=== PATIENT | male | born 1945 | race Caucasian/White ===

== ENCOUNTER → 2016-09-10 | Outpatient (CLI) | payer MEDICARE, BC | LOC: LAB.O 20:39 | PROVIDERS: ATTEND Nurse Practitioner Family | DX: M25.439 Effusion, unspecified wrist (principal) ==

== ENCOUNTER → 2016-12-04 | Outpatient (CLI) | payer MEDICARE ==
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
== END ==
LOC: MRI 07:49
PROVIDERS: ATTEND Family Medicine
DX: M54.12 Radiculopathy, cervical region (principal); M48.02 Spinal stenosis, cervical region

== ENCOUNTER → 2018-09-10 | Day surgery (SDC) | payer MEDICARE ==
--- NOTE | 2018-09-07 14:04 | RAD ---
EXAM DESCRIPTION: Chest,2 Views CLINICAL HISTORY: PREOP COMPARISON: Previous study December 14, 2013 TECHNIQUE: PA/lateral FINDINGS: There is no acute appearing cardiac or pulmonary abnormality. Heart size is normal with normal pulmonary vascularity. No pleural effusion or pneumothorax. Lungs are clear with no consolidating infiltrate. Lateral view shows intact sternum and multilevel spurring in the T-spine. IMPRESSION: No acute process is identified in the chest. Electronically signed by: Russ Leslie MD 09/07/2018 2:01 PM CDT
[~2018-09-10] MED LIST: ACETAMINOPHEN W/COD #3 TAB 1 EA TAB ONE; BUPIVACAINE 0.25% W/EPI 50 ML VIAL INJ ONE; DEXAMETHASONE INJ 10 MG/ML VIAL IV ONE; LACTATED RINGERS 1,000 ML IVS ONE; LACTATED RINGERS 1,000 ML ONE; LIDOCAINE 1% 10 ML VIAL INJ ONE; MIDAZOLAM INJ 2 MG/2 ML VIAL ONE; PHENYLEPHRINE INJ 1ML 10 MG/ML VIAL IV ONE; PROPOFOL 200 MG/20 ML VIAL IV ONE; SODIUM CHL 0.9% 50ML MIN-BAG+ 50 ML IVPB ONE; ceFAZolin SODIUM 1 GM VIAL ONE; ePHEDrine SULF 50 MG/ML IV ONE; fentaNYL CITRATE INJ 50 MCG/ML AMP ONE; raNITIdine HCL INJ 25 MG/ML VIAL IV ONE
--- NOTE | 2018-09-10 13:30 | OP ---
DATE OF PROCEDURE: 09/10/18 PREOPERATIVE DIAGNOSIS: 1. Reducible right inguinal hernia. POSTOPERATIVE DIAGNOSIS: 1. Reducible right inguinal hernia. PROCEDURE: 1. Repair of right inguinal hernia. SURGEON: Ashok Patterson MD. SHIPPING CLERK CRATING: None. ANESTHESIA: General laryngeal mask anesthesia and local infiltration of 0.25% Marcaine with epinephrine. INDICATION: The patient is a 73-year-old male who has had a hernia for quite some time and he has known about it. It became symptomatic recently. The patient was brought to the Surgical Suite today for hernia repair after the risks, benefits and alternatives to the procedure were discussed and accepted and the patient was seen and thought to be an appropriate risk by his family physician, Dr. Mir Reyes. FINDINGS: The patient had a large indirect inguinal hernia with no sliding component. There was also a significant cord lipoma. No other pathology was identified. PROCEDURE: After adequate general laryngeal mask anesthesia was obtained in the supine position, the patient was prepped and draped in the usual sterile manner. At this point, a surgical time-out was taken noting the right side which was previously marked in ambulatory services. At this point, local infiltration of anesthesia was obtained in the right lower quadrant and an oblique incision was fashioned first with a sharp knife, then dissection was carried down through the skin and subcutaneous tissue to the external oblique fascia using electrocautery and blunt dissection. The self-retaining retractor was placed at this level. The external oblique fascia was then opened in the direction of the fibers through the external inguinal ring using first a sharp knife and then Metzenbaum scissors. The external oblique fascia was then dissected free from the cord and from the floor of the canal and the self-retaining retractor was placed at this level. The cord was then dissected free from the floor of the canal. A half inch [place] drain was placed around it for traction. When this was done, the cord was then explored with the indirect hernia sac identified and dissected free down to the level of the internal ring. The cord lipomas were dissected free using electrocautery and clamps and ligatures of 3-0 Vicryl. When this was done, hemostasis was noted to be adequate. At this point, a Surgimesh plug was introduced under the floor of the canal at the internal inguinal ring. It was sutured circumferentially with interrupted 2-0 Vicryl sutures. When this was done, the wound was irrigated with saline. Hemostasis was noted to be adequate. At this point, a Surgimesh patch was sutured around the cord in the usual manner with interrupted 2-0 Vicryl sutures. Again, the wound was irrigated with saline. Hemostasis was noted to be adequate. At this point, the external oblique fascia was then closed with running 3-0 Vicryl suture. The cord and subcutaneous tissue above, below and lateral to the incision were infiltrated with local anesthesia. The Elias's fascia was approximated with interrupted 3- 0 Chromic suture. Skin edges were approximated with skin stapler. Sterile pressure dressing was applied. The testicle was checked for position in the scrotum. The patient was awakened and taken to the Recovery Room in stable condition. Estimated blood loss was less than 50 mL. All sponge, needle and instrument counts were correct. #[id number] [facility]
[2018-09-10 13:57] VITALS: BP 148/84; TEMP 97.6; O2SAT 96
== END ==
LOC: AMB 05:41
PROVIDERS: ATTEND Surgery
DX: K40.90 Unilateral inguinal hernia, without obstruction or gangrene, not specified as recurrent (principal); K21.9 Gastro-esophageal reflux disease without esophagitis; E74.39 Other disorders of intestinal carbohydrate absorption; Z85.46 Personal history of malignant neoplasm of prostate; Z88.8 Allergy status to other drugs, medicaments and biological substances; Z79.899 Other long term (current) drug therapy
CPT/HCPCS: 00830; 36415; 49505; 71046; 80053; 81001; 85025; 93005; J0690; J1100; J2250; J2780; J3010; J3490; J7050; J7120

== ENCOUNTER 2018-12-24 17:57 | Emergency (ER) | payer MEDICARE ==
[2018-12-24] MEDS: IPRATROPIUM/ALBUTEROL 3 ML VIAL NEB ONE (18:12)
[2018-12-24 18:21] VITALS: TEMP 98.6
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
[2018-12-24] MEDS: POTASSIUM CHLORIDE ELIXIR 20 MEQ/15 ML UD PO ONE (18:56)
[2018-12-24] MEDS: predniSONE 20 MG TAB PO ONE (19:11)
[2018-12-24] MEDS: SODIUM CHLORIDE 0.9% 1000ML 1,000 ML IVS ONE (19:11)
[2018-12-24 20:09] VITALS: BP 141/73
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
[2018-12-24 20:34] VITALS: O2SAT 97
== END 2018-12-24 20:30 | disposition home or self-care (01) ==
LOC: ER 17:57
DX: J70.5 Respiratory conditions due to smoke inhalation (principal); R07.1 Chest pain on breathing; R06.02 Shortness of breath; R05 Cough; T67.5XXA Heat exhaustion, unspecified, initial encounter; E87.6 Hypokalemia; J45.909 Unspecified asthma, uncomplicated; K21.9 Gastro-esophageal reflux disease without esophagitis; Z85.46 Personal history of malignant neoplasm of prostate; Z88.5 Allergy status to narcotic agent
CPT/HCPCS: 36415; 71045; 80053; 81001; 82550; 82553; 83605; 83735; 83880; 84484; 85025; 85379; 85610; 85730; 93005; 94640; J7030; J7512; J7620

== ENCOUNTER → 2019-03-14 | Outpatient (CLI) | payer MEDICARE | LOC: GMAF 10:36 | PROVIDERS: ATTEND Nurse Practitioner Family | DX: D51.9 Vitamin B12 deficiency anemia, unspecified (principal); R53.83 Other fatigue; E55.9 Vitamin D deficiency, unspecified ==

== ENCOUNTER → 2019-06-02 | Outpatient (CLI) | payer MEDICARE | LOC: GMAF 15:04 | PROVIDERS: ATTEND Nurse Practitioner Family | DX: D51.9 Vitamin B12 deficiency anemia, unspecified (principal) ==

== ENCOUNTER 2019-12-22 16:51 | Emergency (ER) | payer MEDICARE ==
[2019-12-22] MEDS ORDERED: SODIUM CHLORIDE 0.9% 1000ML 1,000 ML IVS PRN (16:58)
[2019-12-22] MEDS ORDERED: SODIUM CHLORIDE 0.9% (FLUSH) 10 ML SYG IV PRN (16:58)
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
[2019-12-22 19:06] VITALS: BP 151/87; TEMP 96; O2SAT 96
== END 2019-12-22 19:25 | disposition home or self-care (01) ==
LOC: ER 16:51
DX: S46.911A Strain of unspecified muscle, fascia and tendon at shoulder and upper arm level, right arm, initial encounter (principal); S30.1XXA Contusion of abdominal wall, initial encounter; J45.909 Unspecified asthma, uncomplicated; K21.9 Gastro-esophageal reflux disease without esophagitis; Z85.46 Personal history of malignant neoplasm of prostate; Z88.5 Allergy status to narcotic agent; W55.22XA Struck by cow, initial encounter; Y93.89 Activity, other specified; Y92.9 Unspecified place or not applicable
CPT/HCPCS: 36415; 71045; 71260; 73030; 74177; 80053; 82150; 85025; 93005; J7030

== ENCOUNTER → 2020-02-06 | Outpatient (CLI) | payer MEDICARE | LOC: GMAM 10:47 | PROVIDERS: ATTEND Family Medicine | DX: D51.9 Vitamin B12 deficiency anemia, unspecified (principal); E55.9 Vitamin D deficiency, unspecified; Z12.5 Encounter for screening for malignant neoplasm of prostate; I10 Essential (primary) hypertension; E78.2 Mixed hyperlipidemia | CPT/HCPCS: 82306; 82607; G0103 ==

== ENCOUNTER → 2020-03-08 | Outpatient (CLI) | payer MEDICARE | LOC: GMAM 14:25 | PROVIDERS: ATTEND Family Medicine | DX: I10 Essential (primary) hypertension (principal); R73.09 Other abnormal glucose ==

== ENCOUNTER → 2020-04-03 | Outpatient (CLI) | payer MEDICARE ==
--- NOTE | 2020-04-04 09:06 | MRI ---
Study: MRI of the Right Shoulder. Indication: PAIN Technique: Multiplanar, multi sequence MRI of the right shoulder was obtained without intravenous contrast. Comparison: None. Findings: Moderate AC joint osteoarthritis with a small joint effusion. Type I acromion with mild lateral downsloping. Small to moderate volume subacromial/subdeltoid bursal fluid. High-grade supraspinatus and infraspinatus tendinosis with high-grade articular, effectively full-thickness tearing anterior two thirds supraspinatus tendon insertion. No significant tendon retraction. Minimal atrophy and grade 1 fatty infiltration rotator cuff musculature with intramuscular edema supraspinatus muscle belly. Subscapularis tendinosis. Long head biceps tendinosis without rupture. Circumferential labral truncation and degeneration. Minimal glenohumeral joint osteoarthritis and tiny joint effusion. No acute fracture. Thickening and edema inferior glenohumeral ligament which can be seen with adhesive capsulitis. Impression: High-grade supraspinatus and infraspinatus tendinosis with high-grade articular, effectively full-thickness tearing anterior two thirds supraspinatus tendon insertion. Minimal atrophy and grade 1 fatty infiltration rotator cuff musculature with edema in the supraspinatus muscle belly. Subscapularis tendinosis. Long head biceps tendinosis. Circumferential labral truncation and degeneration. Minimal glenohumeral joint osteoarthritis and tiny joint effusion. Adhesive capsulitis. Moderate AC joint osteoarthritis. Electronically signed by: Silvino Delgadillo MD 04/04/2020 9:04 AM [facility] [id number]
== END ==
LOC: MRI 10:00
PROVIDERS: ATTEND Family Medicine
DX: S43.431A Superior glenoid labrum lesion of right shoulder, initial encounter (principal); M19.011 Primary osteoarthritis, right shoulder; M75.01 Adhesive capsulitis of right shoulder; M75.81 Other shoulder lesions, right shoulder; M25.411 Effusion, right shoulder; M75.21 Bicipital tendinitis, right shoulder; M62.511 Muscle wasting and atrophy, not elsewhere classified, right shoulder; R60.0 Localized edema